=== PATIENT | male | born 1950 | race Caucasian/White ===

== ENCOUNTER 2017-07-28 19:20 | Emergency (ER) | payer MEDICARE, BC ==
[~2017-07-28] VITALS: Ht 188 cm; Wt 95.5 kg
[2017-07-28] MEDS ORDERED: LEVETIRACETAM500 MG PO (19:37)
[2017-07-28] MEDS ORDERED: PRILOSEC 20MG20 MG PO (19:37)
[2017-07-28] MEDS ORDERED: TAZTIA XT300 MG PO (19:38)
[2017-07-28 19:47] LABS: HEMOGLOBIN 17.8 g/dL (13.5-18.0); MEAN CELL VOLUME 88 fl (78-100); MEAN CORPUSCULAR HEMOGLOBIN 30 pg (27-31); MEAN CORPUSCULAR HGB CONC 34 g/dL (33-37); MEAN PLATELET VOLUME 9.8 fl (7.4-10.4); PLATELET COUNT 226 K/mm3 (130-400); RED BLOOD COUNT 5.93 M/mm3 (4.20-5.60); RED CELL DISTRIBUTION WIDTH 13.2 % (11.5-14.5); WHITE BLOOD COUNT 7.9 K/mm3 (4.8-10.8)
[2017-07-28 20:01] LABS: ALBUMIN 4.4 g/dL (3.5-5.0); BUN/CREATININE RATIO 11.6 (6.0-26.0); CALCIUM 9.2 mg/dL (8.4-10.2); POTASSIUM 4.2 mmol/L (3.6-5.0); TOTAL BILIRUBIN 1.1 mg/dL (0.2-1.3); TOTAL PROTEIN 7.8 g/dL (6.3-8.2)
[2017-07-28 20:04] LABS: LYMPHOCYTE 22 % (20-51); MONOCYTE 12 % (3-10); NEUTROPHILS 65 % (42-75)
[2017-07-28 20:19] LABS: URINE APPEARANCE CLEAR; URINE COLOR YELLOW; URINE PROTEIN(semi-quant) TRACE mg/dL (NEGATIVE)
[2017-07-28 20:20] LABS: URINE BILIRUBIN NEGATIVE (NEGATIVE); URINE BLOOD NEGATIVE (NEGATIVE); URINE GLUCOSE NEGATIVE (NEGATIVE); URINE KETONE NEGATIVE (NEGATIVE); URINE LEUKOCYTE ESTERASE NEGATIVE (NEGATIVE); URINE MUCUS PRESENT (NOT PRESENT); URINE NITRATE NEGATIVE (NEGATIVE); URINE UROBILINOGEN NORMAL (NORMAL); URINE WBC 0-1 /hpf (0-3)
[2017-07-28] MEDS ORDERED: ZITHROMAX 250M250 MG PO (21:27)
[2017-07-28] MEDS ORDERED: TAMIFLU 75MG75 MG PO (21:27)
[2017-07-28 21:45] VITALS: BP 152/89
== END 2017-07-28 21:46 | disposition home or self-care (01) ==
LOC: ED 19:20
PROVIDERS: Nurse Practitioner Primary Care
DX: J10.1 Influenza due to other identified influenza virus with other respiratory manifestations (principal); R41.0 Disorientation, unspecified; H61.23 Impacted cerumen, bilateral
CPT/HCPCS: J7030

== ENCOUNTER → 2019-10-26 | Outpatient (CLI) | payer MEDICARE, BC ==
[~2019-10-26] MED LIST: LEVETIRACETAM500 MG PO; PRILOSEC 20MG20 MG PO; TAMIFLU 75MG75 MG PO; TAZTIA XT300 MG PO; ZITHROMAX 250M250 MG PO
== END ==
LOC: RAD 17:11
DX: M48.061 Spinal stenosis, lumbar region without neurogenic claudication (principal); M47.816 Spondylosis without myelopathy or radiculopathy, lumbar region; M48.07 Spinal stenosis, lumbosacral region; S82.434A Nondisplaced oblique fracture of shaft of right fibula, initial encounter for closed fracture; M77.31 Calcaneal spur, right foot

== ENCOUNTER → 2020-05-15 | Outpatient (CLI) | payer MEDICARE, BC | LOC: RAD 09:15 | DX: I82.411 Acute embolism and thrombosis of right femoral vein (principal); I82.461 Acute embolism and thrombosis of right calf muscular vein ==

== ENCOUNTER → 2020-12-27 | Outpatient (CLI) | payer MEDICARE, BC | LOC: LAB 07:42 | PROVIDERS: Psychiatry & Neurology Neurology | DX: F03.90 Unspecified dementia, unspecified severity, without behavioral disturbance, psychotic disturbance, mood disturbance, and anxiety (principal) ==